=== PATIENT | female | born 1995 | race Caucasian/White ===

== ENCOUNTER 2017-07-21 13:27 | Emergency (ER) | payer BC ==
[~2017-07-21] VITALS: Ht 162.6 cm; Wt 63.5 kg
[2017-07-21 13:29] VITALS: BP 140/77; PULSE 76; RESP 15; TEMP 97.9; O2SAT 98
--- NOTE | 2017-07-21 13:41 | PD ---
Physical Exam Date Seen by Provider: Jul 21, 2017 Time Seen by Provider: 13:39 Narrative 21 female presents to emergency department with reports of flank pain, and vomiting. Recent treatment for urinary tract infection with Cipro which seems to not have worked. Patient is felt feverish. She denies . Flank pain is 8 out of 10. Urinalysis and urine is ordered. Vital signs are stable. Patient is awaiting medicine placement. Data Data Last Documented VS Vital Signs Date Time Temp Pulse Resp B/P (MAP) Pulse Ox O2 Delivery O2 Flow Rate FiO2 07/21/17 13:29 97.9 76 15 140/77 (98) 98 MDM Medical Record Reviewed: Yes Supervised Visit with MIRI: Yes Condition: Stable Min Webb Jul 21, 2017 13:41
[2017-07-21 14:51] LABS: BACTERIA, URINE FEW /hpf; BLOOD, URINE MOD (NEG); COMMENT (UR) CULTURE INDICATED; CULTURE IF INDICATED CULTURE INDICATED; GLUCOSE,URINE NEG (NEG); KETONE, URINE NEG (NEG); MUCUS URINE FEW /lpf (OCC); NITRITE,URINE NEG (NEG); SQUAMOUS EPITHELIAL CELL URINE 4 /hpf (0-5); TRANSITIONAL EPI CELLS, URINE <1 /hpf; URINE COLOR YELLOW (YELLW/STRAW)
[2017-07-21] MEDS ORDERED: CIPR250T52 PO (15:33)
--- NOTE | 2017-07-21 15:41 | PD ---
HPI Chief Complaint: Flank/Kidney Pain Time Seen by Provider: 15:35 Travel History International Travel<30 days: No Contact w/Intl Traveler<30days: No Traveled to known affect area: No History of Present Illness HPI Patient comes emergency Department complaining of worsening UTI symptoms. Patient states that she began having symptoms a week ago and went to an urgent care on Tuesday and received a prescription for Cipro twice a day. Patient states she's been taking medication as prescribed and thought she was getting better however today when she woke she had severe right flank pain that she describes as sharp and consistent without radiation. Patient reports associated suprapubic pain and dysuria. Denies any known fevers, vaginal discharge, vomiting, chest pain, shortness of breath, or . Patient reports associated vomiting and diarrhea. PFSH Past Medical History Immune Disorder: Yes (Lupus, Raynaud's phenomena) ?: Not LMP: 07/18/2017 Social History Tobacco Use: No Substance Use: No Allergies-Medications (Allergen,Severity, Reaction): Coded Allergies: Penicillins (Verified Allergy, Mild, Rash, 07/21/17) Reported Meds & Prescriptions Reported Meds & Active Scripts Active Reported Cipro (Ciprofloxacin HCl) 250 Mg Tab 250 Mg PO BID Review of Systems Except as stated in HPI: all other systems reviewed are Neg Physical Exam Narrative GENERAL: Well-developed, well nourished, in no acute distress, and non-ill appearing. SKIN: Focused skin assessment warm and dry. HEAD: Atraumatic. Normocephalic. EYES: Pupils equal and round. EOMI. No scleral icterus. No injection or drainage. ENT: No nasal bleeding or discharge. Mucous membranes pink and moist. NECK: Trachea midline. Supple. No nuclear rigidity. CARDIOVASCULAR: Regular rate and rhythm. No murmur appreciated. RESPIRATORY: No accessory muscle use. No respiratory distress. Clear to auscultation. Breath sounds equal bilaterally. GASTROINTESTINAL: Abdomen soft, nondistended, and no guarding. Hepatic and splenic margins not palpable. Normal bowel sounds 4. No pulsatile mass. Patient reports suprapubic tenderness and right CVA tenderness. MUSCULOSKELETAL: No obvious deformities. No clubbing. No cyanosis. No edema. Full range of motion. NEUROLOGICAL: Awake and alert. No obvious cranial nerve deficits. Motor grossly within normal limits. Normal speech. PSYCHIATRIC: Appropriate mood and affect; insight and judgment normal. Data Data Last Documented VS Vital Signs Date Time Temp Pulse Resp B/P (MAP) Pulse Ox O2 Delivery O2 Flow Rate FiO2 07/21/17 13:29 97.9 76 15 140/77 (98) 98 Orders Orders Urinalysis - C+S If Indicated (07/21/17 13:41) Ed Urine Pregnancytest Poc (07/21/17 13:41) Urine Culture (07/21/17 13:55) Complete Blood Count With Diff (07/21/17 15:33) Basic Metabolic Panel (Bmp) (07/21/17 15:33) Iv Access Insert/Monitor (07/21/17 15:33) Ecg Monitoring (07/21/17 15:33) Ceftriaxone Inj (Rocephin Inj) (07/21/17 15:45) Sodium Chlor 0.9% 1000 Ml Inj (Ns 1000 M (07/21/17 15:46) Labs Laboratory Tests Test 07/21/17 13:55 Urine Color YELLOW Urine Turbidity HAZY Urine pH 7.0 Urine Specific [place] 1.018 Urine Protein 30 mg/dL Urine Glucose (UA) NEG mg/dL Urine Ketones NEG mg/dL Urine Occult Blood MOD Urine Nitrite NEG Urine Bilirubin NEG Urine Urobilinogen LESS THAN 2.0 MG/DL Urine Leukocyte Esterase LARGE Urine RBC 95 /hpf Urine WBC 170 /hpf Urine Squamous Epithelial Cells 4 /hpf Urine Transitional Epithelial Cells <1 /hpf Urine Bacteria FEW /hpf Urine Mucus FEW /lpf Microscopic Urinalysis Comment CULTURE INDICATED MDM Medical Decision Making Medical Screen Exam Complete: Yes Emergency Medical Condition: Yes Differential Diagnosis UTI, pyonephritis, renal calculi, failed outpatient therapy, , dehydration, acute renal insufficiency, other Narrative Course Patient was seen and examined. Initial laboratory studies were ordered. IV Rocephin was ordered. Patient transferred to medical pod and signed out to Regan Whitman PA-C. Please see his documentation for final diagnosis and disposition. Condition: Stable Tal Burnett Jul 21, 2017 15:41
[2017-07-21] MEDS ORDERED: cefTRIAXone INJ 1,000 MG in SODIUM CHLORIDE 0.9% INJ 100 ML IV ONE (15:45)
[2017-07-21] MEDS ORDERED: SODIUM CHLOR 0.9% 1000 ML INJ 1,000 ML IV ONE (15:46)
[2017-07-21 16:35] LABS: AUTOMATED NEUTROPHIL # 4.7 TH/MM3 (1.8-7.7); BASOPHIL % 0.3 % (0.0-2.0); EOSINOPHIL # 0.1 TH/MM3 (0-0.4); HEMATOCRIT 42.5 % (35.0-46.0); HEMO FLAGS DIFF FINAL; LYMPH % 17.6 % (9.0-44.0); LYMPHOCYTE # 1.1 TH/MM3 (1.0-4.8); MEAN CORPUSCULAR HEMOGLOBIN 30.2 PG (27.0-34.0); MEAN CORPUSCULAR HGB CONC 33.5 % (32.0-36.0); MONO % 9.3 % (0.0-8.0); NEUT % 71.8 % (16.0-70.0); PLATELET COUNT 219 TH/MM3 (150-450); RED BLOOD COUNT 4.72 MIL/MM3 (4.00-5.30); RED CELL DISTRIBUTION WIDTH 12.7 % (11.6-17.2); WHITE BLOOD COUNT 6.5 TH/MM3 (4.0-11.0)
[2017-07-21 16:42] VITALS: BP 126/72; PULSE 72; RESP 18; O2SAT 98
--- NOTE | 2017-07-21 16:45 | PD ---
Physical Exam Date Seen by Provider: Jul 21, 2017 Time Seen by Provider: 16:42 Narrative 21-year-old female that presents to the ED for evaluation of flank pain as well as urinary symptoms. Patient was signed out to me by Jas Burnett PA-C. Please refer to his note. I was asked to follow up on the patient as she'll require labs and imaging data cannot be performed at the area of the ER with the patient was. I was asked to disposition patient pending imaging and labs. Data Data Last Documented VS Vital Signs Date Time Temp Pulse Resp B/P (MAP) Pulse Ox O2 Delivery O2 Flow Rate FiO2 07/21/17 17:24 63 18 136/78 (97) 99 Room Air 07/21/17 13:29 97.9 Orders Orders Urinalysis - C+S If Indicated (07/21/17 13:41) Ed Urine Pregnancytest Poc (07/21/17 13:41) Urine Culture (07/21/17 13:55) Complete Blood Count With Diff (07/21/17 15:33) Basic Metabolic Panel (Bmp) (07/21/17 15:33) Iv Access Insert/Monitor (07/21/17 15:33) Ecg Monitoring (07/21/17 15:33) Ceftriaxone Inj (Rocephin Inj) (07/21/17 15:45) Sodium Chlor 0.9% 1000 Ml Inj (Ns 1000 M (07/21/17 15:46) Ct Abd/Pel W/O Iv Contrast (07/21/17 ) Labs Laboratory Tests Test 07/21/17 13:55 07/21/17 16:00 Urine Color YELLOW Urine Turbidity HAZY Urine pH 7.0 Urine Specific [place] 1.018 Urine Protein 30 mg/dL Urine Glucose (UA) NEG mg/dL Urine Ketones NEG mg/dL Urine Occult Blood MOD Urine Nitrite NEG Urine Bilirubin NEG Urine Urobilinogen LESS THAN 2.0 MG/DL Urine Leukocyte Esterase LARGE Urine RBC 95 /hpf Urine WBC 170 /hpf Urine Squamous Epithelial Cells 4 /hpf Urine Transitional Epithelial Cells <1 /hpf Urine Bacteria FEW /hpf Urine Mucus FEW /lpf Microscopic Urinalysis Comment CULTURE INDICATED White Blood Count 6.5 TH/MM3 Red Blood Count 4.72 MIL/MM3 Hemoglobin 14.2 GM/DL Hematocrit 42.5 % Mean Corpuscular Volume 90.0 FL Mean Corpuscular Hemoglobin 30.2 PG Mean Corpuscular Hemoglobin Concent 33.5 % Red Cell Distribution Width 12.7 % Platelet Count 219 TH/MM3 Mean Platelet Volume 8.8 FL Neutrophils (%) (Auto) 71.8 % Lymphocytes (%) (Auto) 17.6 % Monocytes (%) (Auto) 9.3 % Eosinophils (%) (Auto) 1.0 % Basophils (%) (Auto) 0.3 % Neutrophils # (Auto) 4.7 TH/MM3 Lymphocytes # (Auto) 1.1 TH/MM3 Monocytes # (Auto) 0.6 TH/MM3 Eosinophils # (Auto) 0.1 TH/MM3 Basophils # (Auto) 0.0 TH/MM3 CBC Comment DIFF FINAL Differential Comment Blood Urea Nitrogen 10 MG/DL Creatinine 0.86 MG/DL Random Glucose 76 MG/DL Calcium Level 9.4 MG/DL Sodium Level 137 MEQ/L Potassium Level 4.2 MEQ/L Chloride Level 106 MEQ/L Carbon Dioxide Level 23.7 MEQ/L Anion Gap 7 MEQ/L Estimat Glomerular Filtration Rate 83 ML/MIN [facility] Medical Record Reviewed: Yes Supervised Visit with MIRI: No Interpretation(s) UA shows signs of UTI and hematuria CBC Diagram 07/21/17 16:00 BMP Diagram 07/21/17 16:00 Calcium Level 9.4 Last Impressions Abdomen/Pelvis CT 07/21/17 0000 Signed Impressions: Service Date/Time: July 17:01 - CONCLUSION: 1. Nonobstructing 2 mm calculus in the lower pole lacking system of the right kidney. This appears to be isolated. 2. Small amount of free fluid in the deep right pelvis, well within the range of physiologic for a menstruating female. 3. Appendix is radiographically normal. Shaheen Mortensen MD Differential Diagnosis UTI versus polynephritis versus kidney stone versus cystitis Narrative Course 21-year-old female that presents to the ED for evaluation of urinary symptoms. Patient was properly examined and was found to have signs and symptoms concerning for possible UTI versus kidney stone. Labs and imaging were ordered. Patient was started on Rocephin. Patient was given IV fluids. Case was signed out to me by HAKEEM Burnett pending disposition. Labs and imaging here showed no sign of acute disease other than UTI. Patient will be treated for this with Macrobid and diclofenac sodium. Patient does appear to have a small stone but does not appear to be obstructing. Patient was told to follow closely with PCP. See ED if worsening symptoms. All questions were answered to the best of my ability. My attending Dr. Mack was made aware of all findings and agrees with this plan. We were able to obtain the culture from the urinalysis done at the urgent care which grew Staphylococcus saprophyticus which did not do any susceptibility testing because there is response to Macrobid, Bactrim or fluoroquinolone. Diagnosis Primary Impression: UTI (urinary tract infection) Qualified Codes: N30.01 - Acute cystitis with hematuria Patient Instructions: General Instructions Additional Instruction: Take medication as prescribed. Follow up with PCP. Drink plenty of fluids. See ED if worsening symptoms. Med/Other Pt SpecificInfo: Prescription(s) given Scripts Diclofenac Sodium DR (Diclofenac Sodium DR) 75 Mg Tabdr 75 MG PO BID Y for PAIN SCALE 1 TO 10, #20 TAB 0 Refills Prov: Ginette Mack MD 07/21/17 Nitrofurantoin Monohydrate Macrocrystals (Macrobid) 100 Mg Capsule 100 MG PO BID for Infection for 10 Days, #20 CAP 0 Refills Prov: Ginette Mack MD 07/21/17 Disposition: 01 DISCHARGE HOME Condition: Stable Regan Whitman Jul 21, 2017 16:45
[2017-07-21 17:02] LABS: BICARBONATE 23.7 MEQ/L (21.0-32.0); POTASSIUM 4.2 MEQ/L (3.5-5.1)
[2017-07-21 17:24] VITALS: BP 136/78; PULSE 63; RESP 18; O2SAT 99
--- NOTE | 2017-07-21 17:24 | RADRPT ---
EXAM DATE/TIME: 07/21/2017 17:01 [place] COMPARISON: No previous studies available for comparison. INDICATIONS : Bilateral flank pain today. ORAL CONTRAST: No oral contrast ingested. RADIATION DOSE: 13.28 CTDIvol (mGy) MEDICAL HISTORY : Lupus. raynaud's phenomenon SURGICAL HISTORY : None. ENCOUNTER: Initial ACUITY: 1 day PAIN SCALE: 7/10 LOCATION: Bilateral flank TECHNIQUE: Volumetric scanning of the abdomen and pelvis was performed. Using automated exposure control and ad justment of the mA and/or kV according to patient size, radiation dose was kept as low as reasonably achievable to obtain optimal diagnostic quality images. DICOM format image data is available electro nically for review and comparison. FINDINGS: LOWER LUNGS: The visualized lower lungs are clear. LIVER: Homogeneous density without lesion. There is no dilation of the biliary tree. No calcified gallston es. SPLEEN: Normal size without lesion. PANCREAS: Within normal limits. KIDNEYS: Normal in size and shape. Isolated, 2 mm nonobstructing stone in the lower pole collecting system of the right kidney. ADRENAL GLANDS: Within normal limits. VASCULAR: There is no aortic aneurysm. BOWEL/MESENTERY: The stomach, small bowel, and colon demonstrate no acute abnormality. There is no free intraperitone al air or fluid. The appendix is identified and is radiographically normal. ABDOMINAL WALL: Within normal limits. RETROPERITONEUM: There is no lymphadenopathy. BLADDER: No wall thickening or mass. REPRODUCTIVE: Within normal limits. Small amount of free fluid in the deep right pelvis. INGUINAL: There is no lymphadenopathy or hernia. MUSCULOSKELETAL: Within normal limits for patient age. CONCLUSION: 1. Nonobstructing 2 mm calculus in the lower pole lacking system of the right kidney. This appears to be isolated. 2. Small amount of free fluid in the deep right pelvis, well within the range of physiologic for a me nstruating female. 3. Appendix is radiographically normal. Shaheen Mortensen MD on July 21, 2017 at 17:17 Board Certified Radiologist. This report was verified electronically.
[2017-07-21] MEDS ORDERED: DICL75TA PO (17:58)
[2017-07-21] MEDS ORDERED: MACR100C2 PO (17:58)
== END 2017-07-21 18:54 | disposition home or self-care (01) ==
LOC: NEPE 13:27
DX: N39.0 Urinary tract infection, site not specified (principal); B95.7 Other staphylococcus as the cause of diseases classified elsewhere; N20.0 Calculus of kidney; M32.9 Systemic lupus erythematosus, unspecified; I73.00 Raynaud's syndrome without gangrene; Z88.0 Allergy status to penicillin
CPT/HCPCS: 74176; 80048; 81001; 84703; 85025; 86403; 87077; 87086; 87186; 96361; 96365; 99285; J0696; J7030